=== PATIENT | male | born 2000 | race Hispanic/Latino ===

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

== ENCOUNTER 2025-01-15 10:14 | Emergency (ER) | payer SELFPAY ==
[~2025-01-15] VITALS: Ht 185.4 cm; Wt 129.3 kg
[2025-01-15 11:26] VITALS: PULSE 64; RESP 18; TEMP 98.6
[2025-01-15] MEDS: KETOROLAC TROMETHAMINE 30 MG/ML VIAL IM STA (12:54)
[2025-01-15 12:58] VITALS: BP 127/84; PULSE 74; RESP 18; TEMP 98.3; O2SAT 98
== END 2025-01-15 13:00 | disposition home or self-care (01) ==
LOC: ER 11:30
DX: R42 Dizziness and giddiness (principal); R07.89 Other chest pain; R05.9 Cough, unspecified; R94.31 Abnormal electrocardiogram [ECG] [EKG]
CPT/HCPCS: 71045; 93005; 99284; J1885

== ENCOUNTER 2025-01-28 21:46 | Emergency (ER) | payer SELFPAY ==
[~2025-01-28] VITALS: Ht 185.4 cm; Wt 129.3 kg
[2025-01-28 21:55] VITALS: PULSE 66; RESP 18; TEMP 98.3
[2025-01-28 23:45] VITALS: BP 119/84; PULSE 76; RESP 18; TEMP 98.3; O2SAT 98
== END 2025-01-28 23:55 | disposition home or self-care (01) ==
LOC: ER 21:49
DX: N47.2 Paraphimosis (principal)
CPT/HCPCS: 99284